=== PATIENT | male | born 1990 | race American Indian/Alaskan Native ===

== ENCOUNTER 2018-08-09 12:50 | Emergency (ER) | payer OTHER ==
[2018-08-09 13:11] VITALS: BP 170/90; PULSE 78; RESP 18; TEMP 98.5; O2SAT 100
--- NOTE | 2018-08-09 13:23 | ED PDOC ---
HPI: Influenza Time Seen by Provider: 08/09/18 13:21 Chief Complaint: Cough, Cold, Congestion Chief Complaint (Provider): Flu-like Symptoms History Per: Patient, Other (girlfriend) Exam Limitations: no limitations Onset/Duration Of Symptoms: Days (x3) Additional complaint(s):: 27 year old male presents to the ED for evaluation of flu-like symptoms including body aches, chills, non-productive cough, subjective fever, sore throat, and headache for the past three days. He additionally notes some trouble breathing and mild trouble swallowing, but otherwise denies ear pain. Patient reports taking Nyquil without relief. PMD: none provided Past Medical History Reviewed: Historical Data, Nursing Documentation, Vital Signs Vital Signs: Last Vital Signs Temp 98.5 F 08/09/18 13:10 Pulse 78 08/09/18 13:10 Resp 18 08/09/18 13:10 BP 170/90 H 08/09/18 13:10 Pulse Ox 100 08/09/18 13:10 - Medical History PMH: No Chronic Diseases - Surgical History Surgical History: No Surg Hx - Family History Family History: States: Unknown Family Hx - Social History Current smoker - smoking cessation education provided: No Alcohol: Social Drugs: Denies - Home Medications Home Medications: Ambulatory Orders Medication Instructions Recorded Oseltamivir Phosphate [Tamiflu] 75 mg PO BID #10 capsule 08/09/18 - Allergies Allergies/Adverse Reactions: Allergies Allergy/AdvReac Type Severity Reaction Status Date / Time No Known Allergies Allergy Verified 08/09/18 13:22 Review of Systems ROS Statement: Except As Marked, All Systems Reviewed And Found Negative Constitutional: Positive for: Fever (subjective), Chills, Other (body aches) ENT: Positive for: Throat Pain, Other (mild trouble swallowing). Negative for: Ear Pain Respiratory: Positive for: Cough (non-productive), Other (trouble breathing) Neurological: Positive for: Headache Physical Exam - Reviewed Nursing Documentation Reviewed: Yes Vital Signs Reviewed: Yes - Physical Exam Appears: Positive for: No Acute Distress ENT: Positive for: Pharyngeal Erythema, Tonsillar Swelling (+2 bilaterally). Negative for: Sinus Pain/Drainage (maxillary or frontal sinus tenderness to palpation), Tonsillar Exudate, Other (trismus) Cardiovascular/Chest: Positive for: Regular Rate, Rhythm Respiratory: Positive for: Normal Breath Sounds. Negative for: Accessory Muscle Use, Respiratory Distress Lymphatic: Positive for: Adenopathy (+1 cervical lymphadenopathy bilaterally) Medical Decision Making Medical Decision Making: Time: 1323 Initial Impression: flu-like symptoms Initial Plan: --Influenza A B swab --Rapid strep 1356 Patient informed he is flu-A positive. He will receive one dose of Tamiflu here in ED, and be sent home with a script. Advised on symptomatic care of plenty of fluids / rest, stay out of work, and follow up with PMD. Patient verbalized agreement and understanding of plan and treatment. Scribe Attestation: Documented by Leigha Guerrero, acting as a scribe for Keith Lynn PA-C. Provider Scribe Attestation: All medical record entries made by the Scribe were at my direction and personally dictated by me. I have reviewed the chart and agree that the record accurately reflects my personal performance of the history, physical exam, medical decision making, and the department course for this patient. I have also personally directed, reviewed, and agree with the discharge instructions and disposition. - ECG O2 Sat by Pulse Oximetry: 100 (RA) Pulse Ox Interpretation: Normal Disposition - Clinical Impression Clinical Impression: Influenza A - Patient ED Disposition Is Patient to be Admitted: No Doctor Will See Patient In The: Office Counseled Patient/Family Regarding: Studies Performed, Diagnosis, Need For Followup, Rx Given - Disposition Disposition: Routine/Home Disposition Time: 14:01 Condition: STABLE Additional Instructions: Rest Dayquil Nyquil Fluids Chicken Soup for fever control: tylenol 650mg every 8 hours AND ibuprofen 600mg every 6 hours Prescriptions: Oseltamivir Phosphate [Tamiflu] 75 mg PO BID #10 capsule Instructions: Flu, Flu, Adult (DC) Forms: [employer] ([place])
--- NOTE | 2018-08-09 14:03 | ED PDOC ---
HPI: Influenza Time Seen by Provider: 08/09/18 13:21 Chief Complaint: Cough, Cold, Congestion Past Medical History Vital Signs: Last Vital Signs Temp 98.5 F 08/09/18 13:10 Pulse 78 08/09/18 13:10 Resp 18 08/09/18 13:10 BP 170/90 H 08/09/18 13:10 Pulse Ox 100 08/09/18 13:10 - Allergies Allergies/Adverse Reactions: Allergies Allergy/AdvReac Type Severity Reaction Status Date / Time No Known Allergies Allergy Verified 08/09/18 13:22 - ECG O2 Sat by Pulse Oximetry: 100 Disposition - Disposition Forms: [employer] ([place])
== END 2018-08-09 14:48 | disposition home or self-care (01) ==
LOC: H.ER 12:50
DX: J09.X2 Influenza due to identified novel influenza A virus with other respiratory manifestations (principal); R13.10 Dysphagia, unspecified